=== PATIENT | female | born 1985 | race American Indian/Alaskan Native ===

== ENCOUNTER 2019-06-15 19:21 | Inpatient (IN) | payer MEDICAID, OTHER ==
[2019-06-15] MEDS ORDERED: MINERAL OIL 30 ML ORAL LIQD PO PRN (20:16)
[2019-06-15] MEDS ORDERED: ePHEDrine SULFATE 50 MG/1 ML INJ IV PRN (20:16)
[2019-06-15] MEDS ORDERED: LIDOCAINE (2%) 20 MG/1 ML VIAL 20 ML MDV INFILTRATI ONE (20:16)
[2019-06-15] MEDS ORDERED: BUTORPHANOL 2 MG/1 ML INJ IV PRN (20:16)
[2019-06-15] MEDS ORDERED: fentaNYL 100 MCG/2 ML INJ IV PRN (20:16)
[2019-06-15] MEDS ORDERED: TERBUTALINE 1 MG/1 ML INJ SUB-Q PRN (20:16)
[2019-06-15] MEDS ORDERED: AMPICILLIN/NS 2 GM/100 ML 2 GM/100 ML BAG IV ONE (20:16)
[2019-06-15] MEDS ORDERED: TERBUTALINE 1 MG/1 ML INJ IVP PRN (20:16)
[2019-06-15] MEDS: LACTATED RINGERS 1,000 ML IV SCH (21:10)
[2019-06-15 21:28] LABS: Hematocrit 32.3 % (30.3-42.9); Hemoglobin 10.6 gm/dl (10.1-14.3); Mean Corpuscular HGB Conc 33 % (30-34); Mean Corpuscular Volume 95 fl (79-97); Platelet Count 235 K/mm3 (140-440); Red Blood Count 3.39 M/mm3 (3.65-5.03); Red Cell Distribution Width 14.3 % (13.2-15.2)
[2019-06-16] MEDS: LACTATED RINGERS 1,000 ML IV SCH ×3 (00:44→07:52)
[2019-06-16] MEDS: AMPICILLIN/NS 1 GM/50 ML 1 GM/50 ML BAG IV SCH ×3 (00:45→09:14)
[2019-06-16] MEDS ORDERED: NALOXONE 2 MG/2 ML INJ IV PRN (06:14)
[2019-06-16] MEDS ORDERED: ePHEDrine SULFATE 50 MG/1 ML INJ IV PRN (06:14)
[2019-06-16] MEDS ORDERED: OXYTOCIN DRIP 30,000 MILLIUNITS/500 ML BAG IV ONE (06:15)
--- NOTE | 2019-06-16 06:25 | Anesthesia Consultation ---
Anesthesia Consult and Med Hx Date of service: 06/16/19 - Airway Anesthetic Teeth Evaluation: Good ROM Head & Neck: Adequate Mental/Hyoid Distance: Adequate Mallampati Class: Class II Intubation Access Assessment: Probably Good - Pulmonary Exam CTA: Yes - Cardiac Exam Cardiac Exam: RRR - Pre-Operative Health Status ASA Pre-Surgery Classification: ASA2 Proposed Anesthetic Plan: Epidural - Pulmonary Hx Smoking: No Hx Asthma: No Hx Respiratory Symptoms: No SOB: No COPD: No Home Oxygen Therapy: No Hx Pneumonia: No Hx Sleep Apnea: No - Cardiovascular System Hx Hypertension: No Hx Coronary Artery Disease: No Hx Heart Attack/AMI: No Hx Angina: No Hx Percutaneous Transluminal Coronary Angioplasty (PTCA): No Hx Cardia Arrhythmia: No Hx Pacemaker: No Hx Internal Defibrillator: No Hx Valvular Heart Disease: No Hx Heart Murmur: No Hx Peripheral Vascular Disease: No - Central Nervous System Hx Neuromuscular Disorder: No Hx Seizures: No CVA: No Hx Back Pain: Yes Hx Psychiatric Problems: No - Gastrointestinal Hx Ulcer: No Hx Gastroesophageal Reflux Disease: No - Endocrine Hx Renal Disease: No Hx End Stage Renal Disease: No Hx Cirrhosis: No Hx Liver Disease: No Hx Insulin Dependent Diabetes: No Hx Non-Insulin Dependent Diabetes: No Hx Thyroid Disease: No Hx Hypothyroidism: No Hx Hyperthyroidism: No - Hematic Hx Anemia: Yes Hx Sickle Cell Disease: No - Other Systems Hx Alcohol Use: No Hx Substance Use: No Hx Cancer: No Hx Obesity: No
[2019-06-16] MEDS ORDERED: fentaNYL-BUPIV 2 MCG/ML-0.125% 200 MCG/100 ML BAG EPIDURAL SCH (07:00)
--- NOTE | 2019-06-16 07:55 | History and Physical Report ---
History of Present Illness Date of examination: 06/16/19 Date of admission: 06/15/19 19:48 Chief complaint: Contractions History of present illness: Pt is a 34 yo at 40.5 weeks EGA who presents with regular uterine contractions. She reports positive movement and denies leaking fluid or vaginal bleeding. She has received care with [facility]. She had gaps in care from 28-36 weeks and 36-40 weeks due to lack of insurance. Her has been complicated by anemia. 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 She is GBS positive. Past History Past Medical History: hematologic disorders (carrier alpha-thalassemia) Past Surgical History: no surgical history [employer]UREAU DIRECTOR History: fibroids Family/Genetic History: none Social history: other ([place] resident) - Obstetrical History Expected Date of Delivery: 06/11/19 Actual Gestation: 40 Week(s) 5 Day(s) : 6 Para: 2 Hx # Term Pregnancies: 2 Number of Pregnancies: 0 Spontaneous Abortions: 3 Number of Living Children: 2 Medications and Allergies Allergies Allergy/AdvReac Type Severity Reaction Status Date / Time Sulfa (Sulfonamide Allergy Hives Verified 06/15/19 19:47 Antibiotics) Home Medications Medication Instructions Recorded Confirmed Last Taken Type Ferrous Sulfate [Iron 325 MG] 1 tab PO DAILY 06/15/19 06/15/19 06/15/19 History valACYclovir [Valtrex] 1 tab PO DAILY 06/15/19 06/15/19 06/15/19 History Active Meds: Active Medications Butorphanol Tartrate (Stadol) 2 mg IV Q2H PRN PRN Reason: Pain , Severe (7-10) Ephedrine Sulfate (Ephedrine Sulfate) 10 mg IV Q2M PRN PRN Reason: Hypotension Last Admin: 06/16/19 06:27 Dose: 10 mg Documented by: Ephedrine Sulfate (Ephedrine Sulfate) 10 mg IV Q2M PRN PRN Reason: Hypotension Fentanyl (Sublimaze) 100 mcg IV Q2H PRN PRN Reason: Labor Pain Last Admin: 06/16/19 03:46 Dose: 100 mcg Documented by: Oxytocin/Sodium Chloride (Pitocin/Ns 20 Unit/1000ml Drip) 20 units in 1,000 mls @ 125 mls/hr IV DIRECT CARLOS Lactated Ringer's (Lactated Ringers) 1,000 mls @ 125 mls/hr IV DIRECT CARLOS Last Admin: 06/16/19 06:12 Dose: 125 mls/hr Documented by: Ampicillin Sodium (Ampicillin/Ns 1 Gm/50 Ml) 1 gm in 50 mls @ 100 mls/hr IV Q4HR CARLOS; Protocol Last Admin: 06/16/19 04:41 Dose: 100 mls/hr Documented by: Fentanyl/Bupivacaine/Sodium Chlor (Fentanyl-Bupiv 2 Mcg/Ml-0.125%) 200 mcg in 100 mls @ 12 mls/hr EPIDURAL TITR CARLOS; Protocol Last Admin: 06/16/19 06:28 Dose: 12 mls/hr Documented by: Oxytocin/Sodium Chloride (Pitocin/Ns 30 Unit/500ml) 30,000 milliunits in 500 mls @ 4 mls/hr IV Q20MIN ONE; Protocol Stop: 06/21/19 11:14 Last Admin: 06/16/19 06:28 Dose: 4 milliunits/min, 4 mls/hr Documented by: Mineral Oil (Mineral Oil) 30 ml PO QHS PRN PRN Reason: Constipation Naloxone HCl (Naloxone) 0.2 mg IV Q5M PRN PRN Reason: Respiratory sedation Terbutaline Sulfate (Brethine) 0.25 mg SUB-Q ONCE PRN PRN Reason: Hyperstimulation/Hypertonicity Terbutaline Sulfate (Brethine) 0.25 mg IVP ONCE PRN PRN Reason: Hyperstimulation/Hypertonicity Review of Systems All systems: negative Cardiovascular: no chest pain Respiratory: no shortness of breath - Vital Signs Vital signs: Vital Signs Pulse BP 77 122/75 06/15/19 19:39 06/15/19 19:39 Temp Pulse Resp BP Pulse Ox 98.1 F 80 18 94/61 99 06/16/19 07:19 06/16/19 07:48 06/16/19 07:19 06/16/19 07:20 06/16/19 07:48 - Physical Exam Lungs: Positive: Normal air movement Abdomen: Positive: normal appearance, soft Genitourinary (Female): Positive: normal external genitalia Vagina: Positive: normal moisture Uterus: Positive: enlarged (gravid) Anus/Rectum: Positive: normal perianal skin - Obstetrical FHR: category 2 FHR comments: 3 late decelerations noted after epidural administration Uterine Contraction Monitor Mode: External Cervical Dilatation: 8 Cervical Effacement Percentage: 90 station: -3 Uterine Contraction Frequency (min): 2-4 Uterine Contraction Duration: 60 Results Result Diagrams: 06/15/19 21:01 Abnormal lab results 06/15/19 Range/Units 21:01 RBC 3.39 L (3.65-5.03) M/mm3 All other labs normal. Assessment and Plan A: 34 yo at 40.5 weeks EGA in active labor GBS positive Anemia HSV-2 seropositive, no history or current outbreak Asymptomatic fibroids P: Admit for labor Augment as needed (Has been receiving Pitocin, AROM at 0745 mec) Epidural requested Ampicillin prophylaxis Anticipate
[2019-06-16] MEDS ORDERED: ONDANSETRON 4 MG/2 ML INJ ONE (09:14)
[2019-06-16] MEDS ORDERED: ONDANSETRON 4 MG/2 ML INJ IV ONE (09:30)
[2019-06-16] MEDS: OXYTOCIN 20 UNIT/1000ML DRIP 20 UNITS/1,000 ML BAG IV SCH ×2 (12:57→13:52)
[2019-06-16] MEDS ORDERED: MAGNESIUM HYDROXIDE (MOM) ORAL LIQD UDC PO PRN (13:07)
[2019-06-16] MEDS ORDERED: PROMETHAZINE 25 MG RECT SUPP PR PRN (13:07)
[2019-06-16] MEDS ORDERED: ONDANSETRON 4 MG/2 ML INJ IV PRN (13:07)
[2019-06-16] MEDS ORDERED: PROMETHAZINE 25 MG TAB PO PRN (13:07)
[2019-06-16] MEDS ORDERED: diphenhydrAMINE 25 MG CAP PO PRN (13:07)
[2019-06-16] MEDS ORDERED: WITCH HAZEL/ GLYCERIN PAD TP PRN (13:07)
[2019-06-16] MEDS ORDERED: LANOLIN/ZINC/DIMETHICONE (LANSINOH) 7 GM TP PRN (13:07)
[2019-06-16] MEDS ORDERED: ACETAMINOPHEN 325 MG TAB PO PRN (13:07)
--- NOTE | 2019-06-16 13:15 | Procedure Note ---
OB Delivery Note - Delivery Date of Delivery: 06/16/19 Surgeon: DONNA DE DIOS ([facility]) Estimated blood loss: 100cc - Vaginal Delivery presentation: vertex Delivery position: OA Intrapartum events: PROM->1hr before delivery, meconium, mult. late decelerations (after epidural administration) Delivery induction: none Delivery augmentation: rupture of membranes, pitocin Delivery monitor: external FHT, external uterine Route of delivery: Delivery placenta: spontaneous Delivery cord: 3 umbilical vessels Episiotomy: none Delivery laceration: none Anesthesia: epidural Delivery comments: [place] descent resulted in of vigorous female infant. head delivered OA, restituted LOT, shoulders followed easily. Infant to maternal abdomen, bulb suction. Moderate and terminal meconium noted. Cord clamped and cut by FOB. Infant to warmer for chest physiotherapy. Placenta delivered spontaneously and intact, stained with meconium, sent to pathology. Cord blood collected. Fundus firm, no clots expressed, EBL 100ml. Pitocin infusing . No lacerations noted. - Infant A at 1 minute: 8 at 5 minutes: 9 Gender: Female
[2019-06-16] MEDS: IBUPROFEN 600 MG TAB PO SCH ×2 (13:53→21:12)
[2019-06-16] MEDS ORDERED: FERROUS SULFATE 325 MG TAB PO SCH (22:00)
[2019-06-17 00:48] LABS: Hematocrit 27.5 % (30.3-42.9); Hemoglobin 8.9 gm/dl (10.1-14.3)
[2019-06-17] MEDS: IBUPROFEN 600 MG TAB PO SCH (02:15)
[2019-06-17] MEDS ORDERED: TETANUS,DIPH,PERTUSS(ACELL) VACCINE 0.5 ML SYRINGE IM ONE (06:00)
--- NOTE | 2019-06-17 08:03 | Progress Note ---
Assessment and Plan - Patient Problems (1) Normal vaginal delivery Current Visit: Yes Status: Acute Plan to address problem: patient doing well Subjective - Subjective Date of service: 06/17/19 Interval history: Patient without complaints. Tolerating regular diet. Patient reports: appetite normal, voiding normally, pain well controlled : doing well Objective - Vital Signs Latest vital signs: Vital Signs Temp Pulse Resp BP BP Pulse Ox 06/17/19 04:00 98.7 F 66 16 117/73 06/17/19 00:00 98.7 F 62 18 119/71 06/16/19 20:00 99 F 79 18 117/69 06/16/19 14:45 99.1 F 18 L 18 121/83 06/16/19 14:19 71 100 06/16/19 14:18 69 126/69 06/16/19 14:14 72 99 06/16/19 14:09 78 100 06/16/19 14:04 68 100 06/16/19 13:59 62 100 06/16/19 13:54 60 99 06/16/19 13:49 79 99 06/16/19 13:48 82 121/66 06/16/19 13:44 68 99 06/16/19 13:39 79 100 06/16/19 13:34 76 99 06/16/19 13:29 82 100 06/16/19 13:24 81 99 06/16/19 13:19 71 100 06/16/19 13:18 70 123/67 06/16/19 13:14 79 100 06/16/19 13:09 94 H 100 06/16/19 13:03 76 98 06/16/19 12:59 80 100 06/16/19 12:54 100 H 100 06/16/19 12:50 90 146/83 06/16/19 12:49 99 H 100 06/16/19 12:44 89 96 06/16/19 12:39 94 H 99 06/16/19 12:34 88 100 06/16/19 12:29 96 H 100 06/16/19 12:24 98 H 100 06/16/19 12:20 100 H 136/70 06/16/19 12:19 107 H 100 06/16/19 12:14 101 H 100 06/16/19 12:09 107 H 100 06/16/19 12:04 102 H 100 06/16/19 12:00 98.1 F 06/16/19 11:59 101 H 98 06/16/19 11:54 77 99 06/16/19 11:50 78 131/73 06/16/19 11:49 72 99 06/16/19 11:44 75 98 06/16/19 11:39 77 99 06/16/19 11:34 74 99 06/16/19 11:29 72 99 06/16/19 11:24 74 99 06/16/19 11:19 74 128/70 100 06/16/19 11:14 76 97 06/16/19 11:13 77 93 06/16/19 11:09 74 100 06/16/19 11:04 74 100 06/16/19 10:59 80 100 06/16/19 10:54 77 97 06/16/19 10:49 81 98 06/16/19 10:48 83 117/70 06/16/19 10:44 87 98 06/16/19 10:39 76 99 06/16/19 10:34 80 98 06/16/19 10:29 74 98 06/16/19 10:24 74 97 06/16/19 10:19 68 114/64 98 06/16/19 10:14 68 99 06/16/19 10:09 71 97 06/16/19 10:04 74 98 06/16/19 09:59 74 88 06/16/19 09:58 84 06/16/19 09:49 73 108/62 06/16/19 09:45 65 L 06/16/19 09:30 96 H 81 L 06/16/19 09:28 84 98 06/16/19 09:23 95 H 100 06/16/19 09:20 100 H 123/70 06/16/19 09:18 105 H 100 06/16/19 09:15 57 L 81 L 06/16/19 09:13 123 H 100 06/16/19 09:10 100 H 90 06/16/19 09:08 88 100 06/16/19 09:03 92 H 100 06/16/19 08:57 80 99 06/16/19 08:53 77 100 06/16/19 08:48 85 101/58 99 06/16/19 08:43 83 99 06/16/19 08:38 94 H 100 06/16/19 08:33 78 99 06/16/19 08:27 81 100 06/16/19 08:23 85 99 06/16/19 08:19 105 H 128/86 06/16/19 08:18 100 H 100 06/16/19 08:13 133 H 100 06/16/19 08:08 62 100 06/16/19 08:03 76 100 Intake and Output 06/16/19 06/17/19 06/17/19 22:59 06:59 14:59 Intake Total 200 500 Output Total 550 600 Balance -350 -100 Intake: Oral 200 200 Intake, Free Water 300 Output: Urine 550 600 Void 550 600 Other: Total, Intake Amount 200 200 Total, Output Amount 250 600 # Voids Void 1 1 - Exam Uterus: Present: normal, firm - Labs Labs: Abnormal lab results 06/17/19 Range/Units 00:35 Hgb 8.9 L (10.1-14.3) gm/dl Hct 27.5 L (30.3-42.9) %
--- NOTE | 2019-06-17 08:04 | Discharge Summary ---
Providers - Providers Date of Admission: 06/15/19 19:48 Date of discharge: 06/17/19 Attending physician: MIGEL NEVES MD Primary care physician: MIGEL NEVES MD Hospitalization Reason for admission: active labor Delivery: Discharge diagnosis: IUP at term delivered Hospital course: Patient admitted in labor. Had a . unremarkable Condition at discharge: Good Disposition: DC-01 TO HOME OR SELFCARE - Discharge Diagnoses (1) Normal vaginal delivery Status: Acute Plan - Discharge Medications Prescriptions: Ferrous Sulfate [Ferrous Sulfate 324 MG] 324 mg PO BID #60 tablet. Ibuprofen [Motrin] 600 mg PO Q6H PRN #60 tablet PRN Reason: Pain HYDROcodone/APAP 5-325 [[place] 5/325] 1 each PO Q6HR PRN #20 tablet PRN Reason: Pain - Provider Discharge Summary Activity: no sex for 6 weeks, no heavy lifting 4 weeks, no strenuous exercise Diet: routine Instructions: routine Additional instructions: [] Smoking cessation referral if applicable(refer to patient education folder for contact #) [] Refer to [facility] Booklet Call your doctor immediately for: * Fever > 100.5 * Heavy vaginal bleeding ( >1 pad per hour) * Severe persistent headache * Shortness of breath * Reddened, hot, painful area to leg or breast * schedule visit in 4 weeks - Follow up plan
[2019-06-17 16:34] VITALS: BP 104/70
== END 2019-06-17 16:44 | disposition home or self-care (01) | DRG 806 ==
LOC: TRG 19:21 → OBSVTOIN 19:48 → LD 19:48 → TRG 19:48 → OB 06-16 16:04
PROVIDERS: ADMIT Obstetrics & Gynecology; ATTEND Obstetrics & Gynecology
PROC: 10E0XZZ Delivery of Products of Conception, External Approach (ICD-10-PCS; principal; 2019-06-16)
PROC: 3E0R3BZ Introduction of Anesthetic Agent into Spinal Canal, Percutaneous Approach (ICD-10-PCS; 2019-06-16)
PROC: 00HU33Z Insertion of Infusion Device into Spinal Canal, Percutaneous Approach (ICD-10-PCS; 2019-06-16)
PROC: 3E0234Z Introduction of Serum, Toxoid and Vaccine into Muscle, Percutaneous Approach (ICD-10-PCS; 2019-06-17)
DX: O42.92 Full-term premature rupture of membranes, unspecified as to length of time between rupture and onset of labor (principal); O98.52 Other viral diseases complicating childbirth; Z37.0 Single live birth; O76 Abnormality in fetal heart rate and rhythm complicating labor and delivery; O77.0 Labor and delivery complicated by meconium in amniotic fluid; O99.824 Streptococcus B carrier state complicating childbirth; O99.02 Anemia complicating childbirth; B00.9 Herpesviral infection, unspecified; O34.13 Maternal care for benign tumor of corpus uteri, third trimester; Z23 Encounter for immunization; Z88.2 Allergy status to sulfonamides; Z3A.40 40 weeks gestation of pregnancy; Z79.899 Other long term (current) drug therapy
CPT/HCPCS: 36415; 85014; 85018; 85027; 86592; 86850; 86900; 86901; 88307; 90471; 90715; G0378; J0290; J2405; J2590; J3010; J7120